=== PATIENT | female | born 1960 | race Caucasian/White ===

== ENCOUNTER 2022-11-03 13:17 | Emergency (ER) | payer MEDICARE, SELFPAY ==
--- NOTE | 2022-11-03 14:43 | EXP.UTC ---
Discharge Plan Disposition Patient Disposition: Home, Self-Care Condition: Good Prescriptions Prescriptions: New azithromycin [Zithromax] 250 mg tablet 250 mg PO UD DOSE PK Qty: 6 0RF Rx Instructions: Take two (2) tablets today, then one (1) tablet days #2 thru #5 benzonatate [benzonatate] 100 mg capsule 100 mg PO TIDP PRN (Reason: Cough) Qty: 30 0RF methylprednisolone 4 mg Tablets,Dose Pack 4 mg PO DIRECTED Qty: 21 0RF albuterol sulfate [Ventolin HFA] 90 mcg/actuation HFA aerosol inhaler 2 puff inhalation Q6H PRN (Reason: shortness of breath or wheezing) Qty: 6.7 0RF Activity Restrictions/Add. Instructions Additional Instructions/Restrictions: Drink plenty of fluids. Take tylenol or ibuprofen for pain or fever. Take the medications as directed. Follow up with your regular doctor. GO TO THE ER FOR ANY WORSENING SYMPTOMS Clinical Impressions Clinical Impression: Pharyngitis, Asthma exacerbation, Bronchitis Instructions Patient Instructions: DI for Asthma -- Adult, DI for Sinusitis Discharge ED Provider: Douglas Linton [facility] General Stated complaint: Congestion,cough Time Seen by Provider: 11/03/22 14:43 History of Present Illness Provider Complaint: She states that for the past 3 days she has had cough, sinus congestion and chest congestion. Related Data Previous Rx's Medication Instructions Recorded albuterol sulfate 90 mcg/actuation 2 puff inhalation Q6H PRN 11/03/22 aerosol inhaler (Ventolin HFA) shortness of breath or wheezing #6.7 grams azithromycin 250 mg tablet 250 mg PO UD DOSE PK #6 tabs 11/03/22 (Zithromax) benzonatate 100 mg capsule 100 mg PO TIDP PRN Cough #30 caps 11/03/22 methylprednisolone 4 mg tablets in 4 mg PO DIRECTED #21 tabs 11/03/22 a dose pack Allergies Allergy/AdvReac Type Severity Reaction Status Date / Time No Known Allergies Allergy Verified 11/03/22 14:57 [facility] Disclaimer: The information contained in this section may have been updated after the patient was seen, as this information can be updated by other users. Social History Smoking Status: Former smoker alcohol intake: never current occupational status: retired Travel in the last 8 weeks: None ROS Obtained: Yes All systems reviewed & no additional complaints except as documented Constitutional Constitutional: Reports chills and Denies fever(s) Eyes Eyes: Denies eye discharge ENT Ears, Nose, Mouth, and Throat: Reports as per HPI Cardiovascular Cardiovascular: Denies chest pain Respiratory Respiratory: Denies chest congestion and Reports cough Gastrointestinal Gastrointestingal: Reports nausea; Denies abdominal pain, constipation, cramping, diarrhea or vomiting Musculoskeletal Musculoskeletal: Denies arthralgias Integumentary/Breasts Skin/Breast: Denies rash Neurologic Neurologic: Denies paresthesias Physical Exam General General appearance: alert and in no apparent distress Head Head exam: atraumatic, normocephalic and normal inspection Eye Eye exam: Present normal appearance, PERRL and EOMI ENT ENT exam: Present normal exam, normal oropharynx, mucous membranes moist, TM's normal bilaterally and normal external ear exam Neck Neck exam: Present normal inspection, full ROM and trachea midline; Absent meningismus or lymphadenopathy Chest Chest inspection: Present normal inspection and symmetric chest wall rise; Absent tenderness Respiratory Respiratory exam: Present normal lung sounds bilaterally; Absent respiratory distress Cardiovascular Cardiovascular exam: Present regular rate and normal rhythm; Absent JVD Abdominal Exam Abdominal exam: Present soft and normal bowel sounds; Absent distention, tenderness or guarding Extremities Exam Extremities exam: Present normal inspection, full ROM and normal capillary refill; Absent calf tenderness Back Exam Back exam: Present normal inspect
[2022-11-03 14:54] LABS: UTC Strep Screen (Rapid) Negative (Negative)
[2022-11-03 14:55] VITALS: BP 116/61; PULSE 83; RESP 16; TEMP 36.7; O2SAT 99; BMI 21.9
[2022-11-03 15:23] VITALS: BP 116/61; PULSE 83; RESP 16; TEMP 36.7
== END 2022-11-03 15:24 | disposition home or self-care (01) ==
PROVIDERS: Emergency Provider Nurse Practitioner Family
DX: J45.901 Unspecified asthma with (acute) exacerbation (principal)
CPT/HCPCS: 87880; 99212; G0463

== ENCOUNTER → 2023-03-20 09:43 | Outpatient (POV) | payer MEDICARE, SELFPAY ==
[2023-03-20 09:56] VITALS: BP 115/69; PULSE 58; RESP 20; O2SAT 97; BMI 35.8
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
== END ==
PROVIDERS: PCP Family Medicine; Visit Provider Nurse Practitioner Family
DX: M54.16 Radiculopathy, lumbar region (principal); M54.50 Low back pain, unspecified
CPT/HCPCS: 99202; G0463

== ENCOUNTER 2023-04-09 09:26 | Day surgery (SDC) | payer MEDICARE, SELFPAY ==
[2023-04-09 09:40] VITALS: BP 107/61; PULSE 60; RESP 18; TEMP 36.4; O2SAT 96; BMI 38.0
[2023-04-09 09:48] VITALS: BP 120/53; PULSE 55; RESP 18; O2SAT 97
[2023-04-09 09:49] VITALS: BP 120/53; PULSE 55; RESP 18; O2SAT 97
--- NOTE | 2023-04-09 09:53 | EXP.PAIN.PRO ---
Procedure Date: 04/09/23 Time: 09:45 Anesthesiologist:: Sukhwinder Almeida CRNA Complications:: None Pre-procedure Diagnosis:: Degenerative disc lumbar spine multilevels. Lumbar radiculopathy. Multilevel lumbar facet arthropathy. Multilevel disc bulge L3-4, L4-5, L5-S1. Post-procedure Diagnosis:: Same Indications for Procedure:: Patient is a very pleasant 62-year-old female comes our clinic today for lumbar epidural steroid injection at the L4-5 level. Patient has had these injections in the past. However, it has been over 2 years since her last injection. She describes low back pain as constant, dull, aching. Also bilateral hip and leg radicular symptoms. She rates her pain 8/10 Procedure Details:: Procedure: Lumbar epidural steroid injection under fluoroscopy Informed consent was obtained and the risks and benefits of the procedure were explained to the patient. The patient was taken to the procedure room and noninvasive monitors placed, including noninvasive blood pressure cuff and pulse oximeter. The back was viewed using C-arm Fluoroscopy and prepped using Chloraprep as a cleansing solution and the L4-L5 interspace was palpated. Skin and subcutaneous tissues were anesthetized using lidocaine 1.5% and a 25-gauge needle. After this, an 18-gauge Touhy epidural needle was placed into the L4-L5 interspace and advanced using fluoroscopic guidance and loss of resistance to air until the epidural space was encountered. After confirmation of needle placement in the epidural space, with dye, a solution containing normal saline, 3 mL and Depo-Medrol 80 mg were incrementally injected into the lumbar epidural space. The patient tolerated the procedure well with no complications. The patient was observed in the Pain Clinic and then discharged home neurologically intact. Plan and Disposition:: Patient was discharged without incident.
[2023-04-09 09:54] VITALS: BP 105/69; PULSE 53; RESP 18; O2SAT 96
== END 2023-04-09 09:54 | disposition home or self-care (01) ==
PROVIDERS: PCP Family Medicine; Visit Provider Nurse Anesthetist, Certified Registered
DX: M51.16 Intervertebral disc disorders with radiculopathy, lumbar region (principal); M47.26 Other spondylosis with radiculopathy, lumbar region
CPT/HCPCS: 62323; J1040

== ENCOUNTER → 2023-04-29 14:05 | Outpatient (POV) | payer MEDICARE, SELFPAY ==
--- NOTE | 2023-04-29 14:34 | EXP.PAIN.SOA ---
[facility] Pain Management SOAP Note Subjective:: Patient is a pleasant 62-year-old female who presents today for follow-up of lumbar epidural steroid injection L4-L5 on 04/09/2023. We are currently treating the patient for degenerative disc disease of the lumbar spine with lumbar radiculopathy symptoms, lumbar facet arthropathy, ligamentum flavum hypertrophy. Today she does rate her pain a 4 out of 10. Patient states that she had approximately less than 50% improvement following this injection. She denies any new trauma or injury. She denies any change location or type of pain she experiences. Patient does states she continues to have low back pain with left leg numbness and tingling. Patient does describe this as an aching, throbbing sensation that is worse with increased activity. Patient does state it is constant and that she is even starting to have increased leg spasms and feels like her leg is giving out. Patient does state that the pain is throughout the day and does interfere with her ability perform activities of daily living such as cooking and cleaning. Patient states that she feels like she has a knot along her left side and will use a heating pad on a regular basis for temporary relief. Patient has tried [id number] medications such as Tylenol and ibuprofen along with prescribed medications of Percocet 10 mg 3 times a day, alprazolam 1 mg twice a day, carisoprodol 350 mg at bedtime from her primary care doctor. Patient denies any side effects from these medications. Patient does state that in the past she has had transforaminal epidurals that have provided significant relief long-lasting. Patient is interested in possible injective therapy. Patient has also been prescribed compounding cream. Her Kong is [id number]. Its been reviewed and appropriate. Review of Systems: General: No recent weight changes, no fever, no sleep disturbances Respiratory: No cough, no shortness of air, no recurring pulmonary infections Cardiovascular/peripheral vascular: No chest pain, no palpitations, no edema, no shortness of breath Gastrointestinal: No new onset incontinence, normal bowel movements reported Genitourinary: No new onset incontinence Musculoskeletal: Low back pain, left leg pain Psychiatric: [Normal mood/affect] Neurological: [Denies weakness in extremities], [denies balance issues] Objective:: Physical Exam: General: Alert and oriented x3, no acute distress, pleasant and cooperative Lungs: Respirations even and unlabored, symmetrical chest expansion Eyes: PERRL Musculoskeletal: Flexion and extension of lumbar [spine] somewhat guarded secondary to pain, [antalgic gait noted] positive left leg raise; diminished Achilles reflex along the left side and altered sensation to light touch along her upper and lower left thigh Neurological: Speech clear, no gross sensory deficit Assessment:: Degenerative disc disease of lumbar spine with lumbar radiculopathy symptoms, lumbar facet arthropathy, ligamentum flavum hypertrophy Plan:: Patient is experiencing significant pain in her low back with radiating symptoms into her left leg. Patient did have limited range of motion of her lumbar spine with a positive left leg raise and altered sensation to light touch and diminished Achilles reflex during today's exam. I have discussed with the patient that she may benefit from a left transforaminal epidural steroid injection. Risk and benefits were discussed with the patient and she would like to proceed forward with this plan of care. Patient is not on any blood thinners. I will also send in a 2-week supply of ropinirole 0.25 mg at bedtime. Patient will be scheduled for a left transforaminal epidural steroid injection L4-L5 and L5-S1. Patient has been instructed to contact the clinic with any concerns before the next appointment. Dr. Woodward has reviewed this note and agrees with this plan of care. This note was dictated using voice recognition software and make contain e
[2023-04-29 14:42] VITALS: BP 99/59; PULSE 75; RESP 18; O2SAT 97; BMI 35.8
== END | disposition home or self-care (01) ==
PROVIDERS: PCP Family Medicine; Visit Provider Nurse Practitioner Family
DX: M51.16 Intervertebral disc disorders with radiculopathy, lumbar region (principal); M47.26 Other spondylosis with radiculopathy, lumbar region
CPT/HCPCS: 99212; G0463

== ENCOUNTER 2023-05-14 12:18 | Day surgery (SDC) | payer MEDICARE, SELFPAY ==
[2023-05-14 12:40] VITALS: BP 133/61; PULSE 54; RESP 18; O2SAT 99
[2023-05-14 12:45] VITALS: BP 133/84; PULSE 65; RESP 18; O2SAT 98
[2023-05-14 12:49] VITALS: BMI 35.8
--- NOTE | 2023-05-14 12:57 | P.PCN_ITS ---
Procedure Date: 05/14/23 Time: 12:40 Anesthesiologist:: Sukhwinder Almeida CRNA Complications:: None Pre-procedure Diagnosis:: Degenerative disc lumbar spine multilevels. Lumbar radiculopathy. Lumbar spondylosis. Multilevel disc bulge lumbar spine. Post-procedure Diagnosis:: Same. Indications for Procedure:: Very pleasant 62-year-old female comes our clinic today for lumbar L4-5, L5-S1 left transforaminal epidural steroid injection. Patient describes left hip and leg radicular symptoms as constant, dull, aching. Patient is status post a recent intralaminar lumbar epidural steroid injection at the L4-5 level. Patient reports significant improvement terms of her overall low back pain as well as right hip and leg radicular symptoms. However, she continues with the left side radicular symptoms. She rates her pain 8/10 Procedure Details:: Details of the procedure were explained to the patient. The patient was taken the procedure room placed in the prone position. The area of the lumbar spine was cleansed using chlorhexidine as a cleansing solution. At this time using fluoroscopy guidance markers were placed on the left lateral border of the L4 and L5 vertebral body. The skin and subcutaneous tissue was anesthetized using 1% lidocaine and 25-gauge needle. At this time using a 22-gauge 3-1/2 inch spinal needle the left upper one third of the L4-5 foramen was accessed. The same was done at the left L5-S1 foramen. Needle positions were confirmed and a lateral view using fluoroscopy and contrast dye. At this time 1 cc of 1% lidocaine +20 mg of Depo-Medrol was injected at each level after negative aspiration. [place] were removed. Band-Aid applied. Patient tolerated the procedure without difficulty. There are no complications. Plan and Disposition:: Patient was discharged without incident.
[2023-05-14 13:00] VITALS: BP 109/63; PULSE 61; RESP 18; TEMP 36.4; O2SAT 99
== END 2023-05-14 13:00 | disposition home or self-care (01) ==
PROVIDERS: PCP Family Medicine; Visit Provider Nurse Anesthetist, Certified Registered
DX: M51.16 Intervertebral disc disorders with radiculopathy, lumbar region (principal); M47.26 Other spondylosis with radiculopathy, lumbar region
CPT/HCPCS: 64483; 64484; J1030

== ENCOUNTER → 2023-06-05 10:43 | Outpatient (POV) | payer MEDICARE, SELFPAY ==
--- NOTE | 2023-06-05 12:08 | EXP.PAIN.SOA ---
[facility] Pain Management SOAP Note Subjective:: Patient is a pleasant 62-year-old female who presents today for follow-up of left transforaminal epidural steroid injection L4-L5 and L5-S1 on 05/14/2023. We are currently treating the patient for degenerative disc disease of lumbar spine with lumbar radiculopathy symptoms, lumbar facet arthropathy, ligamentum flavum hypertrophy. Today she states that she has had 100% improvement following this injection however she did recently have a fall coming out of the shower. She states she did have a sinus infection with a double ear infection that she believes caused her to lose her balance causing the initial fall. She does state that she still is experiencing significant relief in her low back that is still very tolerable. The patient denies any residual issues following this however that she did go to her PCP for evaluation and they have ordered an MRI. She does state that the MRI is scheduled coming up however she did not have the most pleasant visit with the primary care provider. Patient was previously a patient of Dr. Berry's however with him moving to [facility] [place] she was transferred over to the office on [facility] and saw the physician's academic affairs assistant. Patient does state that she was unhappy with the treatment she received and she is planning on switching to Dr. Berry in [place] to continue her care. Patient is currently managed with Percocet 10 mg 3 times a day, alprazolam 1 mg twice a day, Soma 350 mg at bedtime all written by her primary care provider. Her Kong is [id number]. Its been reviewed and appropriate. Review of Systems: General: No recent weight changes, no fever, no sleep disturbances Respiratory: No cough, no shortness of air, no recurring pulmonary infections Cardiovascular/peripheral vascular: No chest pain, no palpitations, no edema, no shortness of breath Gastrointestinal: No new onset incontinence, normal bowel movements reported Genitourinary: No new onset incontinence Musculoskeletal: Low back pain, left leg pain Psychiatric: [Normal mood/affect] Neurological: [Denies weakness in extremities], [denies balance issues] Objective:: Physical Exam: General: Alert and oriented x3, no acute distress, pleasant and cooperative Lungs: Respirations even and unlabored, symmetrical chest expansion Eyes: PERRL Musculoskeletal: Flexion and extension of lumbar [spine] somewhat guarded secondary to pain, [antalgic gait noted] Neurological: Speech clear, no gross sensory deficit Assessment:: Degenerative disc disease of lumbar spine with lumbar radiculopathy symptoms, lumbar facet arthropathy, ligamentum flavum hypertrophy Plan:: Patient has had significant improvement following the left transforaminal epidural steroid injection and does not require any additional injective therapy at this time. Patient will return to clinic in 1 month for reevaluation of symptoms and plan of care. Patient has been instructed to contact the clinic with any concerns before the next appointment. Dr. Woodward has reviewed this note and agrees with this plan of care. This note was dictated using voice recognition software and make contain errors or omissions. [facility] Disclaimer: The information contained in this section may have been updated after the patient was seen, as this information can be updated by other users. Medical History Anxiety Asthma Depression Dyshidrotic eczema GERD (gastroesophageal reflux disease) Herpes HLD (hyperlipidemia) Hypertension Seizures Surgical History H/O: hysterectomy History of carpal tunnel surgery Family History Other No significant family history Social History Smoking Status: Former smoker alcohol intake: never substance use type: denies use current occupatio
[2023-06-05 13:00] VITALS: BP 135/82; PULSE 57; RESP 17; O2SAT 99; BMI 35.8
== END ==
PROVIDERS: Visit Provider Nurse Practitioner Family
DX: M51.16 Intervertebral disc disorders with radiculopathy, lumbar region (principal); M47.26 Other spondylosis with radiculopathy, lumbar region; M46.00 Spinal enthesopathy, site unspecified
CPT/HCPCS: 99212; G0463

== ENCOUNTER → 2023-06-12 15:41 | Outpatient (CLI) | payer MEDICARE, SELFPAY ==
--- NOTE | 2023-06-12 16:02 | MR_ITS ---
PROCEDURE INFORMATION: Exam: MR Lumbar Spine Without Contrast Exam date and time: 06/12/2023 3:58 PM Age: 62 years old Clinical indication: Low back pain TECHNIQUE: Imaging protocol: Magnetic resonance imaging of the lumbar spine without contrast. COMPARISON: No relevant prior studies available. FINDINGS: Bones/joints: See L4-L5 finding. Spinal cord: Visualized cord, conus medullaris and cauda equina are unremarkable without compression. L1-L2: No significant disc bulge or herniation. No severe spinal canal stenosis. No significant neural foraminal narrowing. L2-L3: No significant disc bulge or herniation. No severe spinal canal stenosis. No significant neural foraminal narrowing. L3-L4: There is some loss of intervertebral disc space at L3-L4 with infolding of the ligamentum flavum and minimal narrowing of the spinal canal. There is mild to moderate right neural foraminal narrowing at this level. L4-L5: There is loss of intervertebral disc space with infolding of the ligamentum flavum at L4-L5. This causes moderate canal narrowing (20 series 6). There is moderate left and mild right neural foraminal narrowing at this level. L5-S1: No significant disc bulge or herniation. No severe spinal canal stenosis. No significant neural foraminal narrowing. Soft tissues: Unremarkable. IMPRESSION: Degenerative disease of the lower lumbar spine which is most pronounced at L4-L5 where there is moderate canal narrowing as well as bilateral neural foraminal narrowing.
== END ==
LOC: RAD 15:44
PROVIDERS: PCP Family Medicine; Visit Provider Nurse Practitioner Family
DX: G89.29 Other chronic pain (principal); M54.16 Radiculopathy, lumbar region; M54.9 Dorsalgia, unspecified; M54.50 Low back pain, unspecified
CPT/HCPCS: 72148; 76376

== ENCOUNTER → 2023-07-15 12:47 | Outpatient (POV) | payer MEDICARE, SELFPAY ==
--- NOTE | 2023-07-15 13:10 | EXP.PAIN.SOA ---
[facility] Pain Management SOAP Note Subjective:: Patient is a pleasant 62-year-old female who presents today for 1 month follow-up. We are currently treating the patient for degenerative disc disease of lumbar spine with lumbar radiculopathy symptoms, lumbar facet arthropathy, ligamentum flavum hypertrophy. Today she rates her pain a 3 out of 10. Patient denies any new trauma or injury. Patient previously had a left transforaminal epidural steroid injection L4-L5 and L5-S1 back in May that did provide 100% improvement. She states that it is still continuing to provide significant relief. She states she has been able to still increase her activity and do more things with decreased pain. Patient is currently managed with Percocet 10 mg 3 times a day, alprazolam 1 mg twice a day and Soma 350 mg at bedtime by her primary care doctor. Her Kong is [phone]. Its been reviewed and appropriate. Review of Systems: General: No recent weight changes, no fever, no sleep disturbances Respiratory: No cough, no shortness of air, no recurring pulmonary infections Cardiovascular/peripheral vascular: No chest pain, no palpitations, no edema, no shortness of breath Gastrointestinal: No new onset incontinence, normal bowel movements reported Genitourinary: No new onset incontinence Musculoskeletal: Low back pain Psychiatric: [Normal mood/affect] Neurological: [Denies weakness in extremities], [denies balance issues] Objective:: Physical Exam: General: Alert and oriented x3, no acute distress, pleasant and cooperative Lungs: Respirations even and unlabored, symmetrical chest expansion Eyes: PERRL Musculoskeletal: Flexion and extension of lumbar [spine] somewhat guarded secondary to pain, [antalgic gait noted] Neurological: Speech clear, no gross sensory deficit Assessment:: Degenerative disc disease of lumbar spine with lumbar radiculopathy symptoms, lumbar facet arthropathy, ligamentum flavum hypertrophy Plan:: Patient continues to get significant relief following her transforaminal epidural and does not require any additional injective therapy at this time. Patient will return to clinic in 3 months for reevaluation of symptoms and plan of care. Patient has been instructed to contact the clinic with any concerns before the next appointment. Dr. Woodward has reviewed this note and agrees with this plan of care. This note was dictated using voice recognition software and make contain errors or omissions. [facility] Disclaimer: The information contained in this section may have been updated after the patient was seen, as this information can be updated by other users. Medical History Anxiety Asthma Brain aneurysm Depression Dyshidrotic eczema GERD (gastroesophageal reflux disease) Herpes HLD (hyperlipidemia) Hypertension Seizures Surgical History H/O: hysterectomy History of carpal tunnel surgery Family History Other No significant family history Social History Smoking Status: Former smoker alcohol intake: never substance use type: denies use current occupational status: other Travel in the last 8 weeks: None
[2023-07-15 13:18] VITALS: BP 138/76; PULSE 88; RESP 18; O2SAT 97; BMI 35.6
== END ==
PROVIDERS: PCP Family Medicine; Visit Provider Nurse Practitioner Family
DX: M51.16 Intervertebral disc disorders with radiculopathy, lumbar region (principal); M47.26 Other spondylosis with radiculopathy, lumbar region
CPT/HCPCS: 99212; G0463

== ENCOUNTER → 2023-07-18 15:41 | Outpatient (CLI) | payer MEDICARE, SELFPAY ==
[2023-07-18 17:09] LABS: Alanine Aminotransferase 15 U/L (12-78); Albumin/Globulin Ratio 1.7 (1.1-1.8); Alkaline Phosphatase 134 U/L (38-126); Anion Gap 10.1 mEq/L (5-15); Aspartate Amino Transferase 25 U/L (14-36); Bilirubin,Total 0.4 mg/dl (0.2-1.3); Blood Urea Nitrogen 12 mg/dl (7-17); Calcium 9.4 mg/dl (8.4-10.2); Carbon Dioxide 34 mmol/L (22.0-30.0); Chloride 101 mmol/L (98-107); Estimated Glomerular Filt Rate 73 ml/min (>60); GFR (African American) 88 ML/MIN (>60); Globulin 2.4 g/dL (1.3-3.2); Glucose 99 mg/dl (74-100); Potassium 4.1 mmoL/L (3.5-5.1); Sodium 141 mmol/L (136-145); Total Protein,Serum 6.4 g/dl (6.3-8.2)
== END ==
PROVIDERS: PCP Family Medicine; Visit Provider Obstetrics & Gynecology
DX: Z00.00 Encounter for general adult medical examination without abnormal findings (principal)
CPT/HCPCS: 36415; 80053

== ENCOUNTER → 2023-07-31 15:00 | Outpatient (CLI) | payer MEDICARE, SELFPAY | PROVIDERS: PCP Nurse Practitioner; Visit Provider Nurse Practitioner | DX: L03.032 Cellulitis of left toe (principal); B95.7 Other staphylococcus as the cause of diseases classified elsewhere | CPT/HCPCS: 87070; 87077; 87186; 87205 ==

== ENCOUNTER 2024-01-17 18:47 | Outpatient (CLI) | payer MEDICARE, SELFPAY ==
[2024-01-17 18:59] LABS: Basophils # 0.1 K/mm3 (0-0.2); Basophils % 0.7 % (0.1-2.0); Eosinophils # 0.1 K/mm3 (0.0-0.4); Hematocrit 39.6 % (37.0-47.0); Hemoglobin 12.7 g/dL (12.2-16.2); Lymphocytes # 1.9 K/mm3 (0.7-4.5); Mean Corpuscular Hemoglobin 31.5 pg (27.0-31.2); Mean Corpuscular Volume 98.5 fl (81-99); Monocytes # 0.2 K/mm3 (0.1-1.0); Monocytes % 2.9 % (1.7-9.3); Neutrophils # 4.5 K/mm3 (1.8-7.8); Neutrophils % 66.3 % (37.0-80.0); Platelet Count 299 K/mm3 (142-424); Red Blood Count 4.02 M/mm3 (4.20-5.40); Red Cell Distribution Width 14.8 % (11.5-17.5); White Blood Count 6.8 K/mm3 (4.8-10.8)
[2024-01-17 19:16] LABS: Alanine Aminotransferase 15 U/L (12-78); Albumin/Globulin Ratio 1.7 (1.1-1.8); Alkaline Phosphatase 149 U/L (38-126); Anion Gap 8.1 mEq/L (5-15); Aspartate Amino Transferase 26 U/L (14-36); Bilirubin,Total 0.5 mg/dl (0.2-1.3); Blood Urea Nitrogen 9 mg/dl (7-17); Calcium 9.2 mg/dl (8.4-10.2); Carbon Dioxide 33 mmol/L (22.0-30.0); Chloride 102 mmol/L (98-107); Chol/HDL Ratio 3.5 (1-3.5); Cholesterol 172 mg/dl (140-200); Estimated Glomerular Filt Rate 85 ml/min (>60); GFR (African American) 102 ML/MIN (>60); Globulin 2.4 g/dL (1.3-3.2); Glucose 106 mg/dl (74-100); HDL Cholesterol 49 mg/dl (40-60); Potassium 4.1 mmoL/L (3.5-5.1); Sodium 139 mmol/L (136-145); Total Protein,Serum 6.4 g/dl (6.3-8.2); Triglycerides 144 mg/dl (30-150); VLDL Cholesterol 29 mg/dL (0-40)
[2024-01-17 19:27] LABS: Direct LDL Cholesterol 76.64 mg/dL (100-129)
[2024-01-17 19:47] LABS: Thyroid Stimulating Hormone 3.54 uIU/mL (0.465-4.68)
== END 2024-01-17 23:59 ==
LOC: LAB.DROPOF 18:47
PROVIDERS: PCP Family Medicine; Visit Provider Family Medicine
DX: I10 Essential (primary) hypertension (principal); E11.9 Type 2 diabetes mellitus without complications; E78.5 Hyperlipidemia, unspecified; E07.89 Other specified disorders of thyroid
CPT/HCPCS: 80053; 80061; 83036; 84443; 85025

== ENCOUNTER 2024-02-26 11:08 | Emergency (ER) | payer MEDICARE, SELFPAY ==
--- NOTE | 2024-02-26 11:29 | ED_ITS ---
Discharge Plan Disposition Patient Disposition: Home, Self-Care Condition: Good Prescriptions Prescriptions: New azithromycin [Zithromax] 250 mg tablet 250 mg PO UD DOSE PK Qty: 6 0RF Rx Instructions: Take two (2) tablets today, then one (1) tablet days #2 thru #5 benzonatate 100 mg capsule 100 mg PO TIDP PRN (Reason: Cough) Qty: 30 0RF prednisone 10 mg tablet 10 mg PO DIRECTED 9 Days Qty: 21 0RF Rx Instructions: Take 4 tablets daily for 3 days, then take 2 tablets daily for 3 days, then take 1 tablet daily for 3 days, then stop. albuterol sulfate 2.5 mg /3 mL (0.083 %) solution for nebulization 2.5 mg inhalation Q6H PRN (Reason: shortness of breath or wheezing) Qty: 90 2RF No Action clobetasol 0.05 % cream 1 applic topical HS Qty: 60 4RF budesonide-formoterol [Symbicort] 160-4.5 mcg/actuation HFA aerosol inhaler 1 inh inhalation BID Qty: 10.2 12RF alprazolam 1 mg tablet 0.5 mg PO TID Qty: 45 3RF metoprolol succinate 25 mg tablet extended release 24 hr See Rx Instructions .ROUTE .COMPLEX Qty: 90 3RF Dose Instruction: TAKE 1 TABLET BY MOUTH DAILY FOR BLOOD PRESSURE Rx Instructions: TAKE 1 TABLET BY MOUTH DAILY FOR BLOOD PRESSURE losartan 100 mg tablet 100 mg PO DAILY Qty: 90 3RF oxycodone-acetaminophen [Percocet] 10-325 mg tablet 1 tab PO Q8H PRN (Reason: pain) Qty: 90 0RF carisoprodol [Soma] 250 mg tablet 250 mg PO HS PRN (Reason: muscle pain) Qty: 30 3RF levetiracetam [Keppra] 500 mg tablet 500 mg PO BID cholecalciferol (vitamin D3) 1,250 mcg/3 mL drops See Rx Instructions .ROUTE .COMPLEX Rx Instructions: unknown dosing naratriptan 2.5 mg tablet See Rx Instructions PO .COMPLEX Rx Instructions: take 1 tab at onset of headache; if no relief may repeat 1 tab after at least 4 hrs; max = 2 tabs/24 hrs PO montelukast [Singulair] 10 mg tablet 10 mg PO DAILY Qty: 90 3RF albuterol sulfate [Ventolin HFA] 90 mcg/actuation HFA aerosol inhaler 2 puff inhalation Q6H PRN (Reason: shortness of breath or wheezing) Qty: 6.7 12RF escitalopram oxalate 20 mg tablet See Rx Instructions .ROUTE .COMPLEX Qty: 30 0RF Dose Instruction: TAKE 1 TABLET BY MOUTH DAILY FOR MOOD Rx Instructions: TAKE 1 TABLET BY MOUTH DAILY FOR MOOD atorvastatin [Lipitor] 20 mg tablet 20 mg PO DAILY meloxicam 15 mg tablet 15 mg PO DAILY pantoprazole [Protonix] 40 mg tablet,delayed release (DR/EC) 40 mg PO DAILY Referrals Follow up/Referrals: Vinnie Berry MD [Primary Care Provider] - See instructions Activity Restrictions/Add. Instructions Additional Instructions/Restrictions: Drink plenty of fluids. Take tylenol or ibuprofen for pain or fever. Take the medications as directed. Follow up with your regular doctor. GO TO THE ER FOR ANY WORSENING SYMPTOMS Don't start the oral steroids (prednisone) until tomorrow since you had the steroid shot here today. Clinical Impressions Clinical Impression: Asthma exacerbation Instructions Patient Instructions: Asthma -- Adult, DI for Asthma -- Adult, Methylprednisolone Injection Discharge ED Provider: Douglas Linton [facility] General Stated complaint: headache,runny nose, SOA-history of asthma Time Seen by Provider: 02/26/24 11:29 History of Present Illness Provider Complaint: She states that for the past 4 days she has had worsening productive cough, chest congestion, wheezing and sinus congestion. Related Data Home Medications Medication Instructions Recorded Confirmed cholecalciferol (vitamin D3) 1,250 See Rx Instructions .Route 01/29/23 02/14/24 mcg/3 mL (50,000 unit/3 mL) oral .COMPLEX Supplement drops levetiracetam 500 mg tablet 500 mg PO BID seizures 01/29/23 02/14/24 (Keppra) atorvastatin 20 mg tablet (Lipitor) 20 mg PO DAILY Cholesterol 03/20/23 02/14/24 meloxicam 15 mg tablet 15 mg PO DAILY antiinflammatory 03/20/23 02/14/24 pantoprazole 40 mg tablet,delayed 40 mg PO DAILY gerd 03/20/23 02/14/24 release (Protonix) naratriptan 2.5 mg tablet See Rx Instructions PO .COMPLEX 11/21/23 02/14/24 Previous Rx's Medication Instructions Recorded clobetasol 0.05 % topical cream 1 applic topical HS #60 grams 07/18/23 montelukast 10 mg tablet 10 mg PO DAILY #90 tabs 12/20/23 (Singulair) alprazolam 1 mg tablet 0.5 mg (1/2 x 1 mg) PO TID #45 tabs 01/17/24 budesonide-formoterol HFA 160 1 inh inhalation BID #10.2 grams 01/17/24 mcg-4.5 mcg/actuation aerosol inhaler (Symbicort) albuterol sulfate 90 mcg/actuation 2 puff inhalation Q6H PRN 02/03/24 aerosol inhaler (Ventolin HFA) shortness of breath or wheezing #6.7 grams carisoprodol 250 mg tablet (Soma) 250 mg PO HS PRN muscle pain #30 02/14/24 tabs losartan 100 mg tablet 100 mg PO DAILY #90 tabs 02/14/24 metoprolol succinate 25 mg See Rx Instructions .Route 02/14/24 tablet,extended release 24 hr .COMPLEX #90 tabs oxycodone-acetaminophen 10 mg-325 1 tab PO Q8H PRN pain #90 tabs 02/14/24 mg tablet (Percocet) escitalopram oxalate 20 mg tablet See Rx Instructions .Route 02/17/24 .COMPLEX #30 tabs albuterol sulfate 2.5 mg/3 mL 2.5 mg (3 mL) inhalation Q6H PRN 02/26/24 (0.083 %) solution for nebulization shortness of breath or wheezing #90 mL azithromycin 250 mg tablet 250 mg PO UD DOSE PK #6 tabs 02/26/24 (Zithromax) benzonatate 100 mg capsule 100 mg PO TIDP PRN Cough #30 caps 02/26/24 prednisone 10 mg tablet 10 mg PO DIRECTED 9 days #21 02/26/24 tabs Allergies Allergy/AdvReac Type Severity Reaction Status Date / Time acetaminophen [From Lortab] Allergy Intermediate Verified 02/26/24 11:44 hydrocodone [From Lortab] Allergy Intermediate Verified 02/26/24 11:44 PFSH PFSH Disclaimer: The information contained in this section may have been updated after the patient was seen, as this information can be updated by other users. Medical History Brain aneurysm Seizures GERD (gastroesophageal reflux disease) Depression Anxiety HLD (hyperlipidemia) Asthma Dyshidrotic eczema Hypertension Herpes Surgical History History of carpal tunnel surgery H/O: hysterectomy Family History Other No significant family history Social History Smoking Status: Former smoker alcohol intake: never substance use type: denies use current occupational status: other Travel in the last 8 weeks: None ROS Obtained: Yes All systems reviewed & no additional complaints except as documented Constitutional Constitutional: Reports poor appetite Eyes Eyes: Reports system reviewed and no additional complaints, except as documented ENT Ears, Nose, Mouth, and Throat: Reports as per HPI Cardiovascular Cardiovascular: Reports system reviewed and no additional complaints, except as documented and Denies chest pain Respiratory Respiratory: Denies shortness of breath, Reports chest congestion, Reports cough, Denies stridor and Denies wheezing Gastrointestinal Gastrointestingal: Reports system reviewed and no additional complaints, except as documented; Denies abdominal pain, diarrhea or vomiting Musculoskeletal Musculoskeletal: Reports system reviewed and no additional complaints, except as documented and Denies arthralgias Integumentary/Breasts Skin/Breast: Reports system reviewed and no additional complaints, except as documented and Denies rash Neurologic Neurologic: Denies paresthesias Allergic/Immunologic Allergic/Immunologic: Denies wheezing Physical Exam General General appearance: alert and in no apparent distress Head Head exam: atraumatic, normocephalic and normal inspection Eye Eye exam: Present normal appearance, PERRL and EOMI ENT ENT exam: Present normal exam, normal oropharynx, mucous membranes moist, TM's normal bilaterally and normal external ear exam Neck Neck exam: Present normal inspection, full ROM and trachea midline; Absent meningismus or lymphadenopathy Chest Chest inspection: Present normal inspection and symmetric chest wall rise; Absent tenderness Respiratory Respiratory exam: Present normal lung sounds bilaterally; Absent respiratory distress Cardiovascular Cardiovascular exam: Present regular rate and normal rhythm; Absent JVD Abdominal Exam Abdominal exam: Present soft and normal bowel sounds; Absent distention, tenderness or guarding Extremities Exam Extremities exam: Present normal inspection, full ROM and normal capillary refill; Absent calf tenderness Back Exam Back exam: Present normal inspection; Absent tenderness Neurological Exam Neurological exam: Present alert and oriented X3 Psychiatric Psychiatric exam: Present normal affect and normal mood Skin Skin exam: Present warm, dry, intact and normal color Lymphatic Lymphatic Findings: no adenopathy Medical Decision Making Medical Records Medical records reviewed: No I reviewed the patient's medical records. Kong Inquiry Pt receiving controlled substance: No Lab Data Lab results reviewed: Yes I reviewed the patient's lab results.
[2024-02-26 11:30] VITALS: BP 156/77; PULSE 65; RESP 18; TEMP 36.9; O2SAT 94; BMI 36.2
[2024-02-26] MEDS: METHYLPREDNISOLONE SOD SUCC 125MG VIAL 125 MG IM (11:54)
[2024-02-26] MEDS: IPRATROPIUM/ALBUTEROL 3 ML NEB IH (11:54)
[2024-02-26 12:35] VITALS: BP 156/77; PULSE 65; RESP 18; TEMP 36.9; O2SAT 94
== END 2024-02-26 12:35 | disposition home or self-care (01) ==
PROVIDERS: Emergency Provider Nurse Practitioner Family; PCP Family Medicine
DX: J45.901 Unspecified asthma with (acute) exacerbation (principal); R05.9 Cough, unspecified; R09.81 Nasal congestion; K21.9 Gastro-esophageal reflux disease without esophagitis; I10 Essential (primary) hypertension; E78.5 Hyperlipidemia, unspecified
CPT/HCPCS: 96372; 99212; 99214; G0463

== ENCOUNTER 2024-03-04 15:30 | Outpatient (CLI) | payer MEDICARE, SELFPAY ==
--- NOTE | 2024-03-04 15:34 | XR_ITS ---
FINAL REPORT CLINICAL HISTORY: asthma exacerbation, SOA x2 weeks hx HBP COMPARISON: None FINDINGS: No acute pulmonary density is evident. There is no evidence of effusion or other pleural disease. The mediastinum has a normal appearance. The cardiac silhouette is unremarkable. IMPRESSION: Unremarkable chest exam. Reviewed, Interpreted and Dictated by Alexandro Last MD Transcribed by Megan Leslie Authenticated and . [facility] [place]
== END 2024-03-04 23:59 | disposition home or self-care (01) ==
LOC: RAD 15:31
PROVIDERS: PCP Family Medicine; Visit Provider Nurse Practitioner
DX: J45.901 Unspecified asthma with (acute) exacerbation (principal); R09.89 Other specified symptoms and signs involving the circulatory and respiratory systems
CPT/HCPCS: 71046

== ENCOUNTER 2024-06-10 08:59 | Outpatient (POV) | payer MEDICARE, SELFPAY ==
--- NOTE | 2024-06-10 09:29 | A.OFFVIS_ITS ---
[facility] Disclaimer: The information contained in this section may have been updated after the patient was seen, as this information can be updated by other users. Medical History Bilateral rales Brain aneurysm Seizures GERD (gastroesophageal reflux disease) Depression Anxiety HLD (hyperlipidemia) Asthma Dyshidrotic eczema Hypertension Herpes Surgical History History of carpal tunnel surgery H/O: hysterectomy Family History Other No significant family history Social History Smoking Status: Former smoker alcohol intake: never substance use type: denies use current occupational status: other Travel in the last 8 weeks: None PM Subjective & Objective Subjective Subjective:: Patient is a pleasant 63-year-old female who presents today for follow-up and worsening pain. Today she rates her pain a 10 out of 10. Patient does state that she has been experiencing severe low back pain that goes into her hips and buttocks area over the last month or longer. Patient denies any specific trauma or injury. Patient does state prior to that she was put on steroids for 4 months due to pneumonia and her asthma. Patient states that it was found that her apartment had mold in it and that this was aggravating her respiratory i ssues. She states that she did end up having to move to a different apartment and this 1 requires her to go up steps and aggravates her overall pain symptoms. She does describe it as an aching, throbbing sensation that does interfere with her ability to perform activities of daily living such as cooking and cleaning. Patient does state the pain is severe and would like an injection. Patient is currently managed with Percocet, alprazolam and Soma from an outside provider. Her Kong has been reviewed and is appropriate. Review of Systems: General: No recent weight changes, no fever, no sleep disturbances Respiratory: No cough, no shortness of air, no recurring pulmonary infections Cardiovascular/peripheral vascular: No chest pain, no palpitations, no edema, no shortness of breath Gastrointestinal: No new onset incontinence, normal bowel movements reported Genitourinary: No new onset incontinence Musculoskeletal: Low back pain, bilateral hip pain, buttocks pain Psychiatric: [Normal mood/affect] Neurological: [Denies weakness in extremities], [denies balance issues] Pain at rest (0-10 scale): 10 Objective Objective:: Physical Exam: General: Alert and oriented x3, no acute distress, pleasant and cooperative Lungs: Respirations even and unlabored, symmetrical chest expansion Eyes: PERRL Musculoskeletal: Flexion and extension of lumbar [spine] somewhat guarded secondary to pain, [antalgic gait noted] point tenderness along bilateral SIs with positive bilateral Jocelynn's, Merlyn's, Gaenslen's, compression and distraction exam Neurological: Speech clear, no gross sensory deficit Has patient had previous pain injection?: No Conservative treatment options previously tried: Home exercise plan Length of treatment: Longer than 6 weeks Meds Home Medications and Allergies Home Medications ?Medication ?Instructions ?Recorded ?Confirmed ?Type cholecalciferol (vitamin D3) 1,250 See Rx Instructions .Route 01/29/23 05/29/24 History mcg/3 mL (50,000 unit/3 mL) oral .COMPLEX Supplement drops clobetasol 0.05 % topical cream 1 applic topical HS #60 grams 07/18/23 05/29/24 Rx montelukast 10 mg tablet 10 mg PO DAILY #90 tabs 12/20/23 05/29/24 Rx (Singulair) budesonide-formoterol HFA 160 1 inh inhalation BID #10.2 grams 01/17/24 05/29/24 Rx mcg-4.5 mcg/actuation aerosol inhaler (Symbicort) albuterol sulfate 90 mcg/actuation 2 puff inhalation Q6H PRN 02/03/24 05/29/24 Rx aerosol inhaler (Ventolin HFA) shortness of breath or wheezing #6.7 grams losartan 100 mg tablet 100 mg PO DAILY #90 tabs 02/14/24 05/29/24 Rx metoprolol succinate 25 mg See Rx Instructions .Route 02/14/24 05/29/24 Rx tablet,extended release 24 hr .COMPLEX #90 tabs albuterol sulfate 2.5 mg/3 mL 2.5 mg (3 mL) inhalation Q6H PRN 02/26/24 05/29/24 Rx (0.083 %) solution for nebulization shortness of breath or wheezing #90 mL atorvastatin 20 mg tablet (Lipitor) 20 mg PO DAILY Cholesterol #90 tabs 03/13/24 05/29/24 Rx escitalopram oxalate 20 mg tablet See Rx Instructions .Route 03/13/24 05/29/24 Rx .COMPLEX #90 tabs naratriptan 2.5 mg tablet See Rx Instructions PO .COMPLEX 03/13/24 05/29/24 Rx #10 tabs cetirizine 10 mg tablet 10 mg PO DAILY #90 tabs 04/07/24 05/29/24 Rx latanoprost 0.005 % eye drops 1 drp Eye-Both HS 04/07/24 05/29/24 History valacyclovir 1 gram tablet 1,000 mg PO DAILY . #90 tabs 04/20/24 05/29/24 Rx (Valtrex) cyclobenzaprine 10 mg tablet 10 mg PO BID PRN muscle spasm #60 05/01/24 05/29/24 Rx tabs gabapentin 100 mg capsule 100 mg PO TID #90 caps 05/01/24 05/29/24 Rx pantoprazole 40 mg tablet,delayed 40 mg PO DAILY gerd #90 tabs 05/01/24 05/29/24 Rx release (Protonix) cyclobenzaprine 10 mg tablet 10 mg PO Q8H PRN muscle spasm #90 05/18/24 05/29/24 Rx tabs meloxicam 15 mg tablet See Rx Instructions .Route 05/20/24 05/29/24 Rx .COMPLEX #30 tabs alprazolam 1 mg tablet 0.5 mg (1/2 x 1 mg) PO TID #45 tabs 05/29/24 05/29/24 Rx oxycodone-acetaminophen 10 mg-325 1 tab PO Q8H PRN pain #90 tabs 05/29/24 05/29/24 Rx mg tablet (Percocet) New Prescriptions to Start Prescriptions: Allergies Allergy/AdvReac Type Severity Reaction Status Date / Time acetaminophen [From Lortab] Allergy Intermediate Verified 05/29/24 15:08 hydrocodone [From Lortab] Allergy Intermediate Verified 05/29/24 15:08 Assessment and Plan *Assessment and plan (1) Bilateral sacroiliitis: Status: Acute Category: Medical Code(s): M46.1 - Sacroiliitis, not elsewhere classified Plan Patient is experiencing severe pain throughout her low back and bilateral hips with pain into her buttocks. Patient did have extreme point tenderness along her bilateral SIs with positive bilateral Jocelynn's, Merlyn's, Gaenslen's, compression and distraction exam. Patient has tried conservative therapy including oral medication, heat and ice and topicals with no additional relief. Patient has continued to try at home exercising and stretching for longer than 6 weeks with no additional relief. I have discussed with patient that she may benefit from bilateral SI injections. Risk and benefits were discussed with the patient and she would like to proceed forward with this plan of care. Patient will be submitted for bilateral SI injections under fluoroscopy. Patient has been instructed to contact the clinic with any concerns before the next appointment. Dr. Woodward has reviewed this note and agrees with this plan of care. This note was dictated using voice recognition software and make contain errors or omissions. All injections are used with Lidocaine or Bupivacaine and Depo Medrol.
[2024-06-10 09:59] VITALS: BP 110/71; PULSE 68; RESP 18; O2SAT 98; BMI 41.1
== END 2024-06-10 23:59 | disposition home or self-care (01) ==
LOC: SC.PAIN 09:01
PROVIDERS: PCP Family Medicine; Visit Provider Nurse Practitioner Family
DX: M46.1 Sacroiliitis, not elsewhere classified (principal); Z73.89 Other problems related to life management difficulty; Z79.899 Other long term (current) drug therapy; Z87.891 Personal history of nicotine dependence
CPT/HCPCS: 99212; G0463

== ENCOUNTER → 2024-07-07 07:37 | Day surgery (SDC) | payer MEDICARE, SELFPAY ==
[2024-07-07 08:08] VITALS: BP 135/75; PULSE 70; RESP 16; TEMP 36.4; O2SAT 98; BMI 37.6
[2024-07-07] MEDS: BUPIVACAINE 0.25% 10ML INJ 25 MG IJ (08:40)
[2024-07-07] MEDS: LIDOCAINE 1% 5ML PF VIAL 5 ML (08:40)
[2024-07-07 08:41] VITALS: BP 169/94; PULSE 73; PULSE 75; RESP 18; O2SAT 94
[2024-07-07 08:57] VITALS: BP 144/72; PULSE 77; RESP 18; O2SAT 98
--- NOTE | 2024-07-07 09:29 | P.PCN_ITS ---
Procedure Date: 07/07/24 Time: 08:35 Anesthesiologist:: Sukhwinder Almeida CRNA Complications:: None Pre-procedure Diagnosis:: Bilateral sacroiliitis. Post-procedure Diagnosis:: Same. Indications for Procedure:: Patient is a pleasant 60-year-old female who comes our clinic today for bilateral sacroiliac joint injections of cortisone and local anesthetic. The local anesthetic will be for diagnostic purpose. The cortisone will be for a chance that some therapeutic relief. Patient describes low lumbar back pain off the midline bilaterally. Bilateral posterior hip pain. Difficulty transitioning from sitting to standing. She rates her pain 8/10. Procedure Details:: Procedure: Bilateral sacroiliac joint injections under fluoroscopy Informed consent was obtained and the risks and benefits of the procedure were explained to the patient.~ The patient was taken to the procedure room and noninvasive monitors were placed including a noninvasive blood pressure cuff and pulse oximeter.~ The patient was placed prone on the procedure table. Both hips were cleansed using Betadine as a cleansing solution. C-arm fluoroscopy was used to view the right sacroiliac joint.~ The skin and subcutaneous tissues were anesthetized using lidocaine 1.5% and a 25-gauge needle.~ After this, a 22-gauge spinal needle was inserted under fluoroscopic guidance into the inferior aspect of the right sacroiliac joint.~ Omnipaque dye was injected and good spread was seen throughout the joint.~ After this, approximately 5 mL of bupivacaine, 0.25% and Depo-Medrol, 40 mg was incrementally injected into the right sacroiliac joint. We then moved to the left sacroiliac joint.~ The skin and subcutaneous tissues were anesthetized using lidocaine 1.5% and a 25-gauge needle.~ After this, a 22- gauge spinal needle was inserted under fluoroscopic guidance into the inferior aspect of the left sacroiliac joint.~ Omnipaque dye was injected and good spread was seen throughout the joint. After this, approximately 5 mL of bupivacaine, 0.25% and Depo-Medrol, 40 mg was incrementally injected into the left sacroiliac joint.~ The patient tolerated the procedure well with no complications. The patient was observed in the Pain Clinic and then was discharged home neuro logically intact. Plan and Disposition:: Patient was discharged without incident.
== END | disposition home or self-care (01) ==
PROVIDERS: PCP Family Medicine; Visit Provider Nurse Anesthetist, Certified Registered
DX: M46.1 Sacroiliitis, not elsewhere classified (principal)
CPT/HCPCS: 27096; G0260

== ENCOUNTER 2024-07-15 08:03 | Outpatient (CLI) | payer MEDICARE, SELFPAY ==
--- NOTE | 2024-07-15 08:13 | CA_ITS ---
APPROVED REPORT EXAM: Comprehensive 2D, Doppler, and color-flow Echocardiogram Crematory Operator: Jennifer Bautista CRT Ht: 5 ft 2 in Wt: 226lbs BSA: 2.01 BP: 146/90 mmHg Indications: Hyperlipidemia, Hypertension/HDD, ANXIETY, ANEURYSM, FAMILY HX TAKOTSUBO SYNDROME 2D Dimensions LA Volume 33.80 mL LA Volume Index 16.40 mL/m2 (M/F) 16-34 M-Mode Dimensions RVDd 2.71 cm (0.9-2.6) LA Diam 3.14 cm (1.9-4.0) LVDd 4.14 cm (3.5-5.7) LVDs 2.68 cm (3.5-5.7) IVSd 1.61 cm (0.6-1.1) PWd 0.71 cm (0.6-1.1) EF (Teich) 65.10% FS 35.30% EDV (Teich) 75.90 mL TAPSE 1.55 (<1.7) ESV (Teich) 26.50 mL LV Diastology E Decel Time 353 (160-240 msec) E/A Ratio 0.63 MED A' 7.90 cm/s LAT A' 9.00 cm/s Aortic Valve AI PHT 733.00 ms AO Peak GR. 5.50 mmHg Mitral Valve MV A Velocity 75.0 (40-130 cm/s) E/A Ratio 0.63 Pulmonary Valve PV Peak Velocity 139.0 (50-150 cm/s) Tricuspid Valve TR P. Velocity 240.00 cm/s RAP Estimate 10.00 mmHg RVSP 33.10 mmHg Left Ventricle The left ventricle is normal size. The left ventricular systolic function is normal. The left ventricular ejection fraction is within the normal range. There is increased LV wall thickness. There is normal LV segmental wall motion. Transmitral Doppler flow pattern suggests impaired LV relaxation. LVEF is 55%. Right Ventricle The right ventricle is normal size. The right ventricular systolic function is normal. Atria The left atrium size is normal. The right atrium size is normal. There is no Doppler evidence of interatrial shunt. Aortic Valve Aortic valve is mildly thickened. There is no aortic valvular stenosis. Mild aortic regurgitation. Mitral Valve The mitral valve leaflets are mildly thickened. No evidence of mitral valve stenosis. Trace mitral regurgitation. Tricuspid Valve The tricuspid valve leaflets are thin and pliable. Trace tricuspid regurgitation. There is insufficient TR jet to estimate RVSP. Pulmonic Valve The pulmonary valve is normal in structure. Mild pulmonic regurgitation. Great Vessels The aortic root is normal in size. The ascending aorta is normal in size. IVC is normal in size and collapses >50% with inspiration. Pericardium There is no pericardial effusion. Other Information Study Quality: Fair Conclusion Normal biventricular systolic function. Mild AI, mild PI. Electronically signed by : Jessika Valderrama MD 07/20/2024 20:29:35
== END 2024-07-15 23:59 | disposition home or self-care (01) ==
LOC: RT 08:05
PROVIDERS: PCP Family Medicine; Visit Provider Family Medicine
DX: I51.81 Takotsubo syndrome (principal)
CPT/HCPCS: 93306

== ENCOUNTER 2024-08-24 10:47 | Outpatient (POV) | payer MEDICARE, SELFPAY ==
--- NOTE | 2024-08-24 11:06 | EXP.PAIN.SOA ---
[facility] Disclaimer: The information contained in this section may have been updated after the patient was seen, as this information can be updated by other users. Medical History Bilateral rales Brain aneurysm Seizures GERD (gastroesophageal reflux disease) Depression Anxiety HLD (hyperlipidemia) Asthma Dyshidrotic eczema Hypertension Herpes Surgical History History of carpal tunnel surgery H/O: hysterectomy Family History Other No significant family history Social History Smoking Status: Former smoker alcohol intake: never substance use type: denies use current occupational status: other Travel in the last 8 weeks: None PM Subjective & Objective Subjective Subjective:: Patient is a pleasant 63-year-old female who presents today for follow-up of bilateral SI injections on 07/07/2024. Today she rates her pain a 5 out of 10. Patient states that she had at least 80% improvement and feels like it is still helping. She states that it was significant for the full first month and that it has gone down a little bit but still feels like it is very manageable compared to what she had been. Patient states that she has been doing a lot of stretching and that she is able to stand straighter and feels like her knees are not buckling like what they were prior. Patient has even lost 28 pounds and is hoping to lose additional weight. Patient is currently managed with Percocet alprazolam and Soma from an outside provider. Her Kong has been reviewed and is appropriate. Review of Systems: General: No recent weight changes, no fever, no sleep disturbances Respiratory: No cough, no shortness of air, no recurring pulmonary infections Cardiovascular/peripheral vascular: No chest pain, no palpitations, no edema, no shortness of breath Gastrointestinal: No new onset incontinence, normal bowel movements reported Genitourinary: No new onset incontinence Musculoskeletal: Low back pain Psychiatric: [Normal mood/affect] Neurological: [Denies weakness in extremities], [denies balance issues] Pain at rest (0-10 scale): 5 Objective Objective:: Physical Exam: General: Alert and oriented x3, no acute distress, pleasant and cooperative Lungs: Respirations even and unlabored, symmetrical chest expansion Eyes: PERRL Musculoskeletal: Flexion and extension of lumbar [spine] somewhat guarded secondary to pain, [antalgic gait noted] Neurological: Speech clear, no gross sensory deficit Has patient had previous pain injection?: Yes Percent improvement in pain since last injection: 80% Conservative treatment options previously tried: Home exercise plan Length of treatment: Longer than 12 weeks Meds Home Medications and Allergies Home Medications ?Medication ?Instructions ?Recorded ?Confirmed ?Type cholecalciferol (vitamin D3) 1,250 See Rx Instructions .Route 01/29/23 07/27/24 History mcg/3 mL (50,000 unit/3 mL) oral .COMPLEX Supplement drops clobetasol 0.05 % topical cream 1 applic topical HS #60 grams 07/18/23 07/27/24 Rx montelukast 10 mg tablet 10 mg PO DAILY #90 tabs 12/20/23 07/27/24 Rx (Singulair) budesonide-formoterol HFA 160 1 inh inhalation BID #10.2 grams 01/17/24 07/27/24 Rx mcg-4.5 mcg/actuation aerosol inhaler (Symbicort) albuterol sulfate 90 mcg/actuation 2 puff inhalation Q6H PRN 02/03/24 07/27/24 Rx aerosol inhaler (Ventolin HFA) shortness of breath or wheezing #6.7 grams losartan 100 mg tablet 100 mg PO DAILY #90 tabs 02/14/24 07/27/24 Rx metoprolol succinate 25 mg See Rx Instructions .Route 02/14/24 07/27/24 Rx tablet,extended release 24 hr .COMPLEX #90 tabs albuterol sulfate 2.5 mg/3 mL 2.5 mg (3 mL) inhalation Q6H PRN 02/26/24 07/27/24 Rx (0.083 %) solution for nebulization shortness of breath or wheezing #90 mL atorvastatin 20 mg tablet (Lipitor) 20 mg PO DAILY Cholesterol #90 tabs 03/13/24 07/27/24 Rx escitalopram oxalate 20 mg tablet See Rx Instructions .Route 03/13/24 07/27/24 Rx .COMPLEX #90 tabs naratriptan 2.5 mg tablet See Rx Instructions PO .COMPLEX 03/13/24 07/27/24 Rx #10 tabs cetirizine 10 mg tablet 10 mg PO DAILY #90 tabs 04/07/24 07/27/24 Rx latanoprost 0.005 % eye drops 1 drp Eye-Both HS 04/07/24 07/27/24 History valacyclovir 1 gram tablet 1,000 mg PO DAILY . #90 tabs 04/20/24 07/27/24 Rx (Valtrex) gabapentin 100 mg capsule 100 mg PO TID #90 caps 05/01/24 07/27/24 Rx pantoprazole 40 mg tablet,delayed 40 mg PO DAILY gerd #90 tabs 05/01/24 07/27/24 Rx release (Protonix) meloxicam 15 mg tablet See Rx Instructions .Route 05/20/24 07/27/24 Rx .COMPLEX #30 tabs alprazolam 1 mg tablet 0.5 mg (1/2 x 1 mg) PO TID #45 tabs 05/29/24 07/27/24 Rx carisoprodol 250 mg tablet (Soma) 250 mg PO HS PRN muscle pain #30 06/29/24 07/27/24 Rx tabs furosemide 20 mg tablet (Lasix) 20 mg PO DAILY #30 tabs 06/29/24 07/27/24 Rx potassium chloride 10 mEq 10 meq PO DAILY #30 tabs 06/29/24 07/27/24 Rx tablet,extended release oxycodone-acetaminophen 10 mg-325 1 tab PO Q8H PRN pain #90 tabs 07/27/24 07/27/24 Rx mg tablet (Percocet) New Prescriptions to Start Prescriptions: Allergies Allergy/AdvReac Type Severity Reaction Status Date / Time acetaminophen [From Lortab] Allergy Intermediate Verified 07/27/24 13:40 hydrocodone [From Lortab] Allergy Intermediate Verified 07/27/24 13:40 Assessment and Plan *Assessment and plan (1) Bilateral sacroiliitis: Status: Acute Category: Medical Code(s): M46.1 - Sacroiliitis, not elsewhere classified Plan Patient has had significant improvement following her SI injections and does not require any additional injection therapy at this time. Patient will return to clinic in 1 month for reevaluation of symptoms and plan of care. Patient has been instructed to contact the clinic with any concerns before the next appointment. Dr. Woodward has reviewed this note and agrees with this plan of care. This note was dictated using voice recognition software and make contain errors or omissions. All injections are used with Lidocaine or Bupivacaine and Depo Medrol.
[2024-08-24 11:15] VITALS: BP 105/48; PULSE 64; RESP 18; O2SAT 98; BMI 37.9
== END 2024-08-24 23:59 | disposition home or self-care (01) ==
LOC: SC.PAIN 10:48
PROVIDERS: PCP Family Medicine; Visit Provider Nurse Practitioner Family
DX: M46.1 Sacroiliitis, not elsewhere classified (principal); Z79.899 Other long term (current) drug therapy
CPT/HCPCS: 99212; G0463

== ENCOUNTER 2025-08-31 13:27 | Day surgery (SDC) | payer MEDICARE, SELFPAY ==
[2025-08-31 13:41] VITALS: BP 158/85; PULSE 83; RESP 16; O2SAT 100; BMI 40.6
[2025-08-31] MEDS: DEXAMETHASONE 10MG/ML 1ML VIAL 10 MG (14:04)
[2025-08-31] MEDS: LIDOCAINE 1% 5ML PF VIAL 5 ML (14:04)
[2025-08-31] MEDS: BUPIVACAINE 0.25% 10ML INJ 25 MG IJ (14:04)
[2025-08-31 14:05] VITALS: BP 189/75; PULSE 79; RESP 18; O2SAT 96
[2025-08-31 14:06] VITALS: BP 189/75; PULSE 79; RESP 18; O2SAT 96
--- NOTE | 2025-08-31 14:09 | P.PCN_ITS ---
Procedure Date: 08/31/25 Time: 14:00 Anesthesiologist:: Chas Almeida CRNA Complications:: None Pre-procedure Diagnosis:: Bilateral sacroiliitis Post-procedure Diagnosis:: Same Indications for Procedure:: Patient is a very pleasant 64-year-old female who comes to clinic today for bila teral sacroiliac joint injection of cortisone and local anesthetic. Patient describes low lumbar back pain of midline bilaterally. Bilateral posterior hip pain. Difficulty transitioning from sitting to standing due to posterior hip pain bilaterally. She reports have difficulty with ambulation due to low back pain. She rates her pain 7/10. Procedure Details:: Procedure: Bilateral sacroiliac joint injections under fluoroscopy Informed consent was obtained and the risks and benefits of the procedure were explained to the patient.~ The patient was taken to the procedure room and noninvasive monitors were placed including a noninvasive blood pressure cuff and pulse oximeter.~ The patient was placed prone on the procedure table. Both hips were cleansed using Betadine as a cleansing solution. C-arm fluoroscopy was used to view the right sacroiliac joint.~ The skin and subcutaneous tissues were anesthetized using lidocaine 1.5% and a 25-gauge needle.~ After this, a 22-gauge spinal needle was inserted under fluoroscopic guidance into the inferior aspect of the right sacroiliac joint.~ Omnipaque dye was injected and good spread was seen throughout the joint.~ After this, approximately 5 mL of bupivacaine, 0.25% and dexamethasone 5 mg was incrementally injected into the right sacroiliac joint. We then moved to the left sacroiliac joint.~ The skin and subcutaneous tissues were anesthetized using lidocaine 1.5% and a 25-gauge needle.~ After this, a 22- gauge spinal needle was inserted under fluoroscopic guidance into the inferior aspect of the left sacroiliac joint.~ Omnipaque dye was injected and good spread was seen throughout the joint. After this, approximately 5 mL of bupivacaine, 0.25% and dexamethasone 5 mg was incrementally injected into the left sacroiliac joint.~ The patient tolerated the procedure well with no complications. The patient was observed in the Pain Clinic and then was discharged home neurologically intact. Plan and Disposition:: Patient was discharged without incident.
[2025-08-31 14:21] VITALS: BP 163/90; PULSE 76; RESP 16; O2SAT 100
== END 2025-08-31 14:21 | disposition home or self-care (01) ==
PROVIDERS: PCP Family Medicine; Visit Provider Nurse Anesthetist, Certified Registered
DX: M46.1 Sacroiliitis, not elsewhere classified (principal); R56.9 Unspecified convulsions; I10 Essential (primary) hypertension; F41.9 Anxiety disorder, unspecified; J45.909 Unspecified asthma, uncomplicated; F32.A Depression, unspecified; K21.9 Gastro-esophageal reflux disease without esophagitis; E78.5 Hyperlipidemia, unspecified; Z87.891 Personal history of nicotine dependence; Z88.6 Allergy status to analgesic agent; Z88.5 Allergy status to narcotic agent; Z79.51 Long term (current) use of inhaled steroids; Z79.899 Other long term (current) drug therapy
CPT/HCPCS: G0260; J0665; J1100; J2003